=== PATIENT | male | born 1980 | race Caucasian/White ===

== ENCOUNTER → 2017-10-24 12:00 | Emergency (ER) | payer SELFPAY ==
[~2017-10-24 12:00] MED LIST: Acetaminophen TAB* 325 MG PO ONE; Ketorolac INJ* 30 MG/ML 1 ML VIAL IV ONE; Ketorolac INJ* 30 MG/ML 1 ML VIAL ONE; NS 0.9% 1000 ML* 1,000 ML IV ONE
[2017-10-24 14:31] LABS: Hematocrit 47 % (42-52); Hemoglobin 16.3 g/dl (14.0-18.0); Mean Corpuscular HGB Conc 35 g/dl (31-36); Mean Corpuscular Hemoglobin 31 pg (27-31); Mean Corpuscular Volume 89 fL (80-94); Mean Platelet Volume 9 um3 (7.4-10.4); Red Blood Count 5.24 10^6/ul (4.0-5.4); Red Cell Distribution Width 13 % (10.5-15); White Blood Count 8.8 10^3/ul (3.5-10.8)
--- NOTE | 2017-10-24 14:39 | RAD ---
INDICATION: Syncope. COMPARISON: Comparison is made with a prior chest x-ray study from August 12, 2015. TECHNIQUE: 2 portable views of the chest were obtained. FINDINGS: Cardiac and mediastinal contours appear to be within normal limits. The lungs are clear. No pleural effusion is seen. IMPRESSION: NO EVIDENCE FOR ACUTE DISEASE.
[2017-10-24 14:45] LABS: Albumin 4.7 g/dL (3.2-5.2); BUN/Creatinine Ratio 13.6 (8-20); C Reactive Protein 1.94 mg/L (< 5.00); Calcium 9.6 mg/dL (8.6-10.3); EGFR African American 95.8 (>60); EGFR Non-African American 74.5 (>60); Magnesium 2.1 mg/dL (1.9-2.7); Potassium 3.7 mmol/L (3.5-5.0); Total Bilirubin 1.6 mg/dL (0.2-1.0); Total Protein 7.7 g/dL (6.4-8.9)
[2017-10-24 15:00] LABS: TSH (Thyroid Stimulating Horm) 1.14 mcIU/mL (0.34-5.60)
--- NOTE | 2017-10-24 15:03 | RAD ---
Indication: Syncopal episode. Hypertensive episodes. Comparison: No relevant prior exams available on the [facility] [place] for comparison. Technique: Noncontrast CT vertex of skull through foramen magnum. Report: The sulci, ventricles, and basal cisterns are normal for age. Perez matter white matter differentiation is preserved without evidence for edema. No intra or extra axial hemorrhage, mass, or fluid collection detected. Unremarkable visualized orbital contents. Unremarkable calvarium and skull base. Unremarkable scalp. The visualized paranasal sinuses and mastoid air spaces are clear. IMPRESSION: Negative unenhanced head CT.
[2017-10-24 15:49] VITALS: BP 138/92
[2017-10-24 16:33] LABS: Urine Bacteria Absent (Absent); Urine Bilirubin Negative (Negative); Urine Glucose Negative (Negative); Urine Nitrite Negative (Negative)
--- NOTE | 2017-10-24 17:40 | ED ---
Patrice Martinez Benjamin, scribed for Hong Kenyon MD on 10/24/17 at 1413 . Syncope/Near Syncope - HPI Summary HPI Summary: 37yo male states passing out at work today. Pt woke up feeling groggy, also with a bad frontal JIMENEZ behind his eyes with some blurry vision. Pt usually doesn t get JIMENEZ. Pt felt hypertensive this morning but didnt take his BP readings. Pt also felt his heart racing right before passing out. No CP or fever. After the episode, pt is still having JIMENEZ, and his entire body is sore. Pt has hx of HTN, but stopped taking BP meds 1 year ago after side effects started to bother him. 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 - Onset/Duration: Sudden Onset, Lasting Minutes Timing: Intermittent Episode Lasting Context: Witnessed Activity At Onset: At Rest Associated Head Trauma: No Aggravating Factor(s): Nothing Alleviating Factor(s): Spontaneous Resolution Associated Signs And Symptoms: Headache, Palpitations - before episode, Other - soreness - Allergies/Home Medications Allergies/Adverse Reactions: Allergies Allergy/AdvReac Type Severity Reaction Status Date / Time No Known Allergies Allergy Verified 10/24/17 12:09 Home Medications: Home Medications NK [No Home Medications Reported] 10/24/17 [History Confirmed 10/24/17] PMH/Surg Hx/FS Hx/Imm Hx Cardiovascular History: Reports: Hx Hypertension Infectious Disease History: No Infectious Disease History: Denies: Traveled Outside the [place] in Last 30 Days - Family History Known Family History: Positive: Hypertension - Social History Alcohol Use: Occasionally Substance Use Type: Reports: None Smoking Status (MU): Never Smoked Tobacco Review of Systems Constitutional: Negative Positive: Blurred Vision ENT: Negative Positive: Palpitations. Negative: Chest Pain Respiratory: Negative Gastrointestinal: Negative Genitourinary: Negative Positive: Myalgia - body soreness Skin: Negative Positive: Headache, Syncope Psychological: Normal All Other Systems Reviewed And Are Negative: Yes Physical Exam Triage Information Reviewed: Yes Vital Signs On Initial Exam: Initial Vitals Temp Pulse Resp BP Pulse Ox 98.2 F 78 20 167/109 98 10/24/17 12:09 10/24/17 12:09 10/24/17 12:09 10/24/17 12:09 10/24/17 12:09 Vital Signs Reviewed: Yes Appearance: Positive: No Pain Distress, Well-Nourished, Ill-Appearing - mildly Skin: Positive: Warm, Skin Color Reflects Adequate Perfusion, Dry Head/Face: Positive: Normal Head/Face Inspection Eyes: Positive: EOMI, LITA ENT: Positive: Normal ENT inspection Neck: Positive: Supple, Nontender Respiratory/Lung Sounds: Positive: Clear to Auscultation, Breath Sounds Present Cardiovascular: Positive: RRR Abdomen Description: Positive: Nontender, Soft Bowel Sounds: Positive: Present Musculoskeletal: Positive: Strength/ROM Intact Neurological: Positive: Sensory/Motor Intact, Alert, Oriented to Person Place, Time Psychiatric: Positive: Affect/Mood Appropriate Diagnostics - Vital Signs Vital Signs Temp Pulse Resp BP Pulse Ox 10/24/17 12:45 69 20 155/93 100 10/24/17 12:09 98.2 F 78 20 167/109 98 - Laboratory Lab Results: Lab Results 10/24/17 10/24/17 10/24/17 Range/Units 13:46 13:46 13:46 WBC 8.8 (3.5-10.8) 10^3/ul RBC 5.24 (4.0-5.4) 10^6/ul Hgb 16.3 (14.0-18.0) g/dl Hct 47 (42-52) % MCV 89 (80-94) fL MCH 31 (27-31) pg MCHC 35 (31-36) g/dl RDW 13 (10.5-15) % Plt Count 255 (150-450) 10^3/ul MPV 9 (7.4-10.4) um3 Neut % (Auto) 59.1 (38-83) % Lymph % (Auto) 33.7 (25-47) % Dare % (Auto) 5.7 (1-9) % Eos % (Auto) 0.4 (0-6) % Baso % (Auto) 1.1 (0-2) % Absolute Neuts (auto) 5.2 (1.5-7.7) 10^3/ul Absolute Lymphs (auto) 3.0 (1.0-4.8) 10^3/ul Absolute Monos (auto) 0.5 (0-0.8) 10^3/ul Absolute Eos (auto) 0 (0-0.6) 10^3/ul Absolute Basos (auto) 0.1 (0-0.2) 10^3/ul Absolute Nucleated RBC 0.01 10^3/ul Nucleated RBC % 0.1 INR (Anticoag Therapy) 0.95 (0.89-1.11) APTT 31.1 (26.0-36.3) seconds Sodium 137 (133-145) mmol/L Potassium 3.7 (3.5-5.0) mmol/L Chloride 103 (101-111) mmol/L Carbon Dioxide 25 (22-32) mmol/L Anion Gap 9 (2-11) mmol/L BUN 15 (6-24) mg/dL Creatinine 1.10 (0.67-1.17) mg/dL Est GFR ( Amer) 95.8 (>60) Est GFR (Non-Af Amer) 74.5 (>60) BUN/Creatinine Ratio 13.6 (8-20) Glucose 86 (70-100) mg/dL Lactic Acid (0.5-2.0) mmol/L Calcium 9.6 (8.6-10.3) mg/dL Magnesium 2.1 (1.9-2.7) mg/dL Total Bilirubin 1.60 H (0.2-1.0) mg/dL AST 20 (13-39) U/L ALT 48 (7-52) U/L Alkaline Phosphatase 58 (34-104) U/L Total Creatine Kinase 198 (10-223) U/L Troponin I 0.00 (<0.04) ng/mL C-Reactive Protein 1.94 (< 5.00) mg/L Total Protein 7.7 (6.4-8.9) g/dL Albumin 4.7 (3.2-5.2) g/dL Globulin 3.0 (2-4) g/dL Albumin/Globulin Ratio 1.6 (1-3) Lipase 18 (11.0-82.0) U/L TSH 1.14 (0.34-5.60) mcIU/mL Urine Color Urine Appearance Urine pH (5-9) Ur Specific [place] (1.010-1.030) Urine Protein (Negative) Urine Ketones (Negative) Urine Blood (Negative) Urine Nitrate (Negative) Urine Bilirubin (Negative) Urine Urobilinogen (Negative) Ur Leukocyte Esterase (Negative) Urine WBC (Auto) (Absent) Urine RBC (Auto) (Absent) Ur Squamous Epith Cells (Absent) Urine Bacteria (Absent) Urine Glucose (Negative) Influenza A (Rapid) (Negative) Influenza B (Rapid) (Negative) 10/24/17 10/24/17 10/24/17 Range/Units 13:46 14:57 16:16 WBC (3.5-10.8) 10^3/ul RBC (4.0-5.4) 10^6/ul Hgb (14.0-18.0) g/dl Hct (42-52) % MCV (80-94) fL MCH (27-31) pg MCHC (31-36) g/dl RDW (10.5-15) % Plt Count (150-450) 10^3/ul MPV (7.4-10.4) um3 Neut % (Auto) (38-83) % Lymph % (Auto) (25-47) % Dare % (Auto) (1-9) % Eos % (Auto) (0-6) % Baso % (Auto) (0-2) % Absolute Neuts (auto) (1.5-7.7) 10^3/ul Absolute Lymphs (auto) (1.0-4.8) 10^3/ul Absolute Monos (auto) (0-0.8) 10^3/ul Absolute Eos (auto) (0-0.6) 10^3/ul Absolute Basos (auto) (0-0.2) 10^3/ul Absolute Nucleated RBC 10^3/ul Nucleated RBC % INR (Anticoag Therapy) (0.89-1.11) APTT (26.0-36.3) seconds Sodium (133-145) mmol/L Potassium (3.5-5.0) mmol/L Chloride (101-111) mmol/L Carbon Dioxide (22-32) mmol/L Anion Gap (2-11) mmol/L BUN (6-24) mg/dL Creatinine (0.67-1.17) mg/dL Est GFR ( Amer) (>60) Est GFR (Non-Af Amer) (>60) BUN/Creatinine Ratio (8-20) Glucose (70-100) mg/dL Lactic Acid 1.3 (0.5-2.0) mmol/L Calcium (8.6-10.3) mg/dL Magnesium (1.9-2.7) mg/dL Total Bilirubin (0.2-1.0) mg/dL AST (13-39) U/L ALT (7-52) U/L Alkaline Phosphatase (34-104) U/L Total Creatine Kinase (10-223) U/L Troponin I (<0.04) ng/mL C-Reactive Protein (< 5.00) mg/L Total Protein (6.4-8.9) g/dL Albumin (3.2-5.2) g/dL Globulin (2-4) g/dL Albumin/Globulin Ratio (1-3) Lipase (11.0-82.0) U/L TSH (0.34-5.60) mcIU/mL Urine Color Yellow Urine Appearance Clear Urine pH 6.0 (5-9) Ur Specific [place] 1.020 (1.010-1.030) Urine Protein 1+(30 mg/dl) H (Negative) Urine Ketones Negative (Negative) Urine Blood Negative (Negative) Urine Nitrate Negative (Negative) Urine Bilirubin Negative (Negative) Urine Urobilinogen Negative (Negative) Ur Leukocyte Esterase Negative (Negative) Urine WBC (Auto) Trace(0-5/hpf) (Absent) Urine RBC (Auto) Absent (Absent) Ur Squamous Epith Cells Present H (Absent) Urine Bacteria Absent (Absent) Urine Glucose Negative (Negative) Influenza A (Rapid) Negative (Negative) Influenza B (Rapid) Negative (Negative) Result Diagrams: 10/24/17 13:46 10/24/17 13:46 Lab Statement: Any lab studies that have been ordered have been reviewed, and results considered in the medical decision making process. - Radiology CXR Xray Interpretation: No Acute Changes Radiology Interpretation Completed By: Radiologist - ED physician has reviewed this radiology report and agrees. - CT CT Brain CT Interpretation: No Acute Changes CT Interpretation Completed By: Radiologist - ED physician has reviewed this radiology report and agrees. - EKG 1227. Cardiac Rate: NL EKG Rhythm: Sinus Rhythm - 66bpm ST Segment: Normal Ectopy: None Course/Dx Course Of Treatment: BP noted and advised to follow up with PCP. Allergies noted. Medications reviewed. IMPROVED IN ED. DISCUSSED RESULTS WITH PATIENT/ FAMILY. F/UY PMD; RETURN IF WORSE. - Diagnoses Provider Diagnoses: Syncope, Headache Discharge - Discharge Plan Condition: Stable Disposition: HOME Patient Education Materials: Syncope (ED), Acute Headache (ED), Acetaminophen ( By mouth), Ibuprofen (By mouth), Hypertension (ED) Referrals: No Primary Care Phys,NOPCP [Primary Care Provider] - [facility] [place] PHYSICIAN REFERRAL [Outside] Additional Instructions: FOLLOW UP WITH YOUR DOCTOR. RETURN TO THE EMERGENCY DEPARTMENT FOR ANY WORSENING OF YOUR CONDITION OR QUESTIONS OR CONCERNS. The documentation as recorded by the Patrice infante Benjamin accurately reflects the service I personally performed and the decisions made by me, Hong Kenyon MD.
== END | disposition home or self-care (01) ==
LOC: ED 12:00
DX: R55 Syncope and collapse (principal); R51 Headache; R00.2 Palpitations; H53.8 Other visual disturbances
CPT/HCPCS: 36415; 70450; 71010; 80053; 81003; 81015; 82550; 83605; 83690; 83735; 84443; 84484; 85025; 85610; 85730; 86140; 87502; 93005; 96374; 96375; 99283; A9270-GY; J1885